=== PATIENT | female | born 1980 | race Caucasian/White ===

== ENCOUNTER 2016-12-12 12:48 | Inpatient (IN) ==
[~2016-12-12 12:48] MED LIST: Famotidine 20 MG/2 ML VIAL IVP PRN; Naloxone 0.4 MG/ML INJ IVP PRN; Ondansetron 4 MG/2 ML VIAL IVP PRN
[2016-12-12] MEDS ORDERED: miSOPROStol 25 MCG TABLET VG SCH (13:00)
[2016-12-12 13:19] LABS: Basophils % 0.1 %; Eosinophils # 0.1 K/mcL (0.0-0.6); Eosinophils % 0.8 %; Hematocrit 34.6 % (35.3-44.9); Hemoglobin 11.6 g/dL (11.5-15.4); Immature Granulocytes % 0.4 % (0-4); Lymphocytes # 1.3 K/mcL (0.6-4.6); Lymphocytes % 13.2 %; Mean Corpuscular HGB Conc 33.5 g/dL (31.6-35.5); Mean Corpuscular Hemoglobin 26.4 pg (28.0-33.3); Mean Corpuscular Volume 78.8 fL (83.0-100.0); Mean Platelet Volume 10.2 fL (9.4-12.4); Monocytes # 0.3 K/mcL (0.0-1.3); Platelet Count 192 K/mcL (140-400); Red Blood Count 4.39 M/mcL (3.82-4.97); Red Cell Distribution Width 14.7 % (11.5-14.5); Segmented Neutrophils % 82.5 %
--- NOTE | 2016-12-12 14:06 | OB/GYN History & Physical ---
Date of Encounter: 12/12/16 Time of Encounter: 13:48 Assessment and Plan (1) 19 weeks gestation of Current visit: Yes Status: Acute (2) Chronic hypertension affecting Current visit: Yes Status: Acute Continue labetalol 200mg TID. (3) Intrauterine , less than 22 weeks Current visit: Yes Status: Acute Admit for induction of labor. Absence of cardiac activity confirmed via US in office per Dr. Leary today and again on admission with doppler. Plan for cytotec 200mcg vaginally every 6 hours. BOTTLE LABELER for pain control as needed. Anticipate . (4) AMA (advanced maternal age) multigravida 35+ Current visit: Yes Status: Acute Pt declines genetic testing or autopsy at this time. Qualifiers: Trimester: second trimester Qualified Code(s): O09.522 - Supervision of elderly multigravida, second trimester (5) Obesity complicating in second trimester Current visit: Yes Status: Acute (6) BMI 36.0-36.9,adult Current visit: Yes Status: Acute History of Present Illness Chief complaint: IUFD HPI: Ms. Castro is a 36 year old female presenting at 19w3d from office where she had her anatomy US with MFM which revealed no FHR today. The absence of cardiac activity was confirmed by Dr. Leary. She denies pain or other complaints on admission today. This has been complicated by chronic hypertension that was poorly controlled prior to and early in this . She was on a beta cholo prior to but had not taken it for some time prior to initiation of PNC. This is also complicated by BMI 36 and AMA status. She declined to have any genetic screening with this . Past Med Surg Social Fam HX - Past Medical History Medical history: hypertension Psychiatric history: anxiety - Past Surgical History Surgical History: no surgical history - Social History Smoking Status: Never smoker Smokeless Tobacco Status: No Alcohol use: none Drug use: none - Family History Mother History Unknown: Yes Living Status: Still Living Obstetrical History - Pregnancies : 3 Para: 1 Term: 1 Ab's: 1 Livin - History/Complications History/Complications: child has autism Medications and Allergies Ferrous Sulfate 1 tab PO DAILY 12/12/16 [History] Labetalol [Labetalol] 200 mg PO TID 12/12/16 [History] Tablet 1 tab PO DAILY 12/12/16 [History] Allergies No Known Allergies Allergy (Verified 10/06/16 22:11) Review of System OB All systems PM: reviewed and no additional remarkable complaints except as stated Exam - Vital Signs Vital signs: Initial Vital Signs Temp Pulse Resp BP 98.7 F 108 16 139/86 12/12/16 13:05 12/12/16 13:05 12/12/16 13:05 12/12/16 13:05 - Constitutional Constitutional: well developed, well nourished, no acute distress - HEENT HEENT: Mucus Membranes Moist - Neck Neck exam: normal inspection - Lungs Respiratory exam: CTAB - Cardiovascular Cardiovascular exam: RRR, +S1, +S2 - Abdomen Abdomen: Present: non tender - Extremities Extremities exam: normal inspection Deep Tendon Reflex Grade: 2+ Normal - Vulva Vulva: bilateral: normal - Vagina Vagina: Present: normal moisture - Cervix Dilation: 0 Effacement: 0 - Anus/Rectum Anus/Rectum: Present: normal perianal skin - Comments Comments: Pt is appropriately sad at this time. She has clear speech and a logical thought process. Results Result Diagrams: 12/12/16 13:07 Abnormal lab results Hct 34.6 % (35.3-44.9) L 12/12/16 13:07 MCV 78.8 fL (83.0-100.0) L 12/12/16 13:07 MCH 26.4 pg (28.0-33.3) L 12/12/16 13:07 RDW 14.7 % (11.5-14.5) H 12/12/16 13:07 All other labs normal. - VTE Reasons for not Prescribing Prophylaxis: Treatment not Indicated - Low risk for VTE
[2016-12-12] MEDS ORDERED: miSOPROStol 100 MCG TABLET VG SCH (18:00)
[2016-12-12] MEDS ORDERED: *HR* HYDROmorphone 20 MG/20 ML PCA IVC PRN (18:39)
[2016-12-12] MEDS ORDERED: Naloxone 0.4 MG/ML INJ IVP PRN (18:39)
[2016-12-12] MEDS ORDERED: *HR* HYDROmorphone (PF) 1 MG/ML SYRINGE IVP ONE (18:40)
[2016-12-12] MEDS ORDERED: *HR* HYDROmorphone (PF) 1 MG/ML SYRINGE ONE (18:43)
[2016-12-12] MEDS ORDERED: Ringers Solution, Lactated 1,000 ML ONE (18:59)
[2016-12-12 19:14] VITALS: BP 166/90
[2016-12-13] MEDS ORDERED: miSOPROStol 100 MCG TABLET PO SCH ×2 (02:30→09:00)
--- NOTE | 2016-12-13 12:13 | OB/GYN Procedure Note ---
Delivery - Delivery Date: 12/13/16 Provider: Audrey Jones Intrapartum events: demise Delivery induction: misoprostol Delivery monitor: none Anesthesia: intravenous Estimated Blood Loss: 100 - (s) Infant A Infant Delivery Date: 12/13/16 Delivery Time: 08:59 Presentation: nuha breech Route of delivery: Gender: Male Viability: Nonviable Weight Gram: 285 g Shoulder Dystocia: not encountered Placenta: spontaneous Cord: nuchal cord - Repair Episiotomy: none Laceration Description: None - Complications Delivery complications: none - Disposition Mom disposition: stable in LDR - Comments Comments: Pt. progress with spontaneous delivery of a non-viable male fetus. Minimal bleeding. Subsequent spontaneous delivery of placenta 3 hours later. Nuchal cord X 2 present. Pt. declines autopsy or any genetic testing. Will send placenta to pathology. Aerobic and anaerobic cultures obtained from placenta. Pt. stable.
--- NOTE | 2016-12-20 11:55 | OB/GYN Progress Note ---
Date of Encounter: 12/20/16 Time of Encounter: 11:54 (Pt. was discharged home in stable condition after recovery period.)
== END 2016-12-13 14:34 | disposition home or self-care (01) | DRG 779 ==
LOC: 1NENULAB
PROVIDERS: ADMIT Obstetrics & Gynecology; ATTEND Obstetrics & Gynecology

== ENCOUNTER 2018-05-20 12:12 | Inpatient (IN) ==
[2018-05-20] MEDS ORDERED: *HR* Labetalol 20 MG/4 ML SYRINGE IVP ONE ×4 (13:34→14:48)
[2018-05-20] MEDS ORDERED: Acetaminophen 325 MG TABLET PO ONE (13:36)
[2018-05-20 13:47] LABS: Basophils % 0.3 %; Eosinophils # 0.1 K/mcL (0.0-0.6); Eosinophils % 1.7 %; Hematocrit 34.8 % (35.3-44.9); Hemoglobin 11.4 g/dL (11.5-15.4); Immature Granulocytes % 0.3 % (0-4); Lymphocytes # 1.1 K/mcL (0.6-4.6); Lymphocytes % 14.2 %; Mean Corpuscular HGB Conc 32.8 g/dL (31.6-35.5); Mean Corpuscular Hemoglobin 24.9 pg (28.0-33.3); Mean Platelet Volume 11.3 fL (9.4-12.4); Monocytes # 0.6 K/mcL (0.0-1.3); Monocytes % 7.7 %; Neutrophils # 5.9 K/mcL (1.6-8.9); Platelet Count 184 K/mcL (140-400); Red Blood Count 4.58 M/mcL (3.82-4.97); Red Cell Distribution Width 14.6 % (11.5-14.5); Segmented Neutrophils % 75.8 %
[2018-05-20] MEDS ORDERED: Naloxone 0.4 MG/ML INJ IVP PRN (13:55)
[2018-05-20] MEDS ORDERED: Famotidine 20 MG/2 ML VIAL IVP PRN (13:55)
[2018-05-20 13:56] LABS: Amphetamine Screen,Urine Negative ng/mL (Cutoff=1000); Barbiturate Screen,Urine Negative ng/mL (Cutoff=200); Benzodiazepines Screen,Urine Negative ng/mL (Cutoff=200); Cannabinoid Screen,Urine Negative ng/mL (Cutoff = 50); Cocaine Screen,Urine Negative ng/mL (Cutoff= 300); Opiate Screen,Urine Negative ng/mL (Cutoff=300); Phencyclidine Screen,Urine Negative ng/mL (Cutoff=25)
[2018-05-20 13:59] LABS: Alanine Aminotransferase 11 Units/L (7-52); Aspartate Amino Transferase 14 Units/L (13-39); BUN/Creatinine Ratio 16 (6-26); Blood Urea Nitrogen 10 mg/dL (6-20); Lactate Dehydrogenase 147 Units/L (140-271); Uric Acid 5.7 mg/dL (2.3-7.6); eGFR For Non-African Americans > 60 (> 60)
[2018-05-20 14:01] LABS: Protein/Creatinine Ratio,Urine 0.21 mg/mg (0.00-0.20)
[2018-05-20] MEDS ORDERED: Ondansetron 4 MG/2 ML VIAL IVP PRN (14:01)
[2018-05-20] MEDS ORDERED: Metoclopramide 10 MG/2 ML VIAL IVP PRN (14:01)
[2018-05-20] MEDS ORDERED: *HR* Nalbuphine 10 MG/ML AMPUL IVP PRN (14:01)
--- NOTE | 2018-05-20 16:27 | OB/GYN History & Physical ---
Date of Encounter: 05/20/18 Time of Encounter: 16:08 Assessment and Plan (1) Chronic hypertension affecting Current visit: Yes Status: Acute Admit to Labor and Delivery for induction of labor due to uncontrolled chronic hypertension Plan of care discussed with Dr. Fleming Given Labetalol 20mg IV Push x 1; 40mg IV push x 1 PIH labs negative Cervical Medina Catheter Pitocin per policy Epidural or Nubain as desired Anticipate Vaginal Delivery (2) 37 weeks gestation of Current visit: Yes Status: Acute (3) Diet controlled gestational diabetes mellitus Current visit: Yes Status: Acute Qualifiers: Trimester: third trimester Qualified Code(s): O24.410 - Gestational diabetes mellitus in , diet controlled (4) AMA (advanced maternal age) multigravida 35+ Current visit: Yes Status: Chronic Qualifiers: Trimester: third trimester Qualified Code(s): O09.523 - Supervision of elderly multigravida, third trimester (5) Obesity complicating in third trimester Current visit: Yes Status: Chronic History of Present Illness Chief complaint: High Blood Pressure HPI: Ms. Castro is a 37 year old female at 37 weeks 3 days who presents from the office due to elevated blood pressures. Pressures in the office and upon arrival to L&D were in the 160s-170s/90s-100s. Additionally, pt complained of slight headache, blurred vision, and mild lightheadedness. Denies chest pain, SOB, nausea, vomiting. Endorses good movement, and denies vaginal bleeding/ loss of clear fluid. has been complicated by chronic hypertension, thus far managed with Labetalol throughout . Pt recently visited with Dr. Shepherd 4 days ago and noted to feel sluggish, fatigued with lower BPs than she was used to, and Labetalol dosage was lowered. Additional complications include advanced maternal age, diet-controlled gestational diabetes, obesity. History of IUFD at 20 weeks gestational age in December 2016. care with Dr[address] Shepherd thus far through . Labs: Blood Type: A positive GBS: Negative Hep B Surf Ag: Nonreactive HIV Ab: Nonreactive Treponema Ab: Negative Rubella: Immune Varicella: Immune Past Med Surg Social Fam HX - Past Medical History Attestation: Yes The following information was validated with the patient. Source: patient Medical history: hypertension Psychiatric history: anxiety, depression - Past Surgical History Surgical History: no surgical history - Social History Smoking Status: Never smoker Smokeless Tobacco Status: No Alcohol use: none Drug use: none - Family History Mother Living Status: Still Living Hx Family Cardiac Disorders: No Hx Family Respiratory Disorders: No Hx Family Cancer: No Hx Family GI Disorders: No Hx Family Genitourinary Disorders: No Hx Family Endocrine Disorder: No Hx Family Musculoskeletal Disorders: No Hx Family Neuromuscular Disorders: No Hx Family Neurologic Disorders: No Hx Family HEENT Disorders: No Hx Family Autoimmune Disorders: No Hx Family Reproductive Disorders: No Hx Family Psychosocial Disorders: No Hx Family Medical Disorders: No Obstetrical History - Pregnancies : 4 Para: 2 Term: 1 : 1 Ab's: 1 Livin Medications and Allergies Labetalol [Labetalol] 300 mg PO BID 12/12/16 [History] Ibuprofen 04/09/17 [History] Pantoprazole Sodium [Protonix] 40 mg PO DAILY #30 tablet. 04/09/17 [Rx] 3 Allergy/AdvReac Type Severity Reaction Status Date / Time [place] Allergy Swelling Verified 04/09/17 12:26 of Lip/Tongue/Throat Review of System OB All systems PM: reviewed and no additional remarkable complaints except as stated Exam - Vital Signs Vital signs: Elevated Pressures 160s-170s/90s-100s. Otherwise vital signs reviewed and stable. - Constitutional Constitutional: well developed, well nourished, no acute distress, obese - HEENT HEENT: EOMI, Normocephaly - Neck Neck exam: full ROM - Lungs Respiratory exam: CTAB - Cardiovascular Cardiovascular exam: RRR, +S1, +S2 - Breasts Breast: bilateral: normal - Abdomen Abdomen: Present: bowel sounds normal, gravid, non tender - Extremities Extremities exam: full ROM, normal capillary refill, normal inspection, pedal edema, warm, radial pulses palpable and symmetrical Deep Tendon Reflex Grade: 2+ Normal - Cervix Dilation: 2 (Per CNM) Effacement: 80 Station: -2 Results Result Diagrams: 05/20/18 13:00 05/20/18 13:00 Abnormal lab results Hgb 11.4 g/dL (11.5-15.4) L 05/20/18 13:00 Hct 34.8 % (35.3-44.9) L 05/20/18 13:00 MCV 76.0 fL (83.0-100.0) L 05/20/18 13:00 MCH 24.9 pg (28.0-33.3) L 05/20/18 13:00 RDW 14.6 % (11.5-14.5) H 05/20/18 13:00 Protein/Creatinin Ratio 0.21 mg/mg (0.00-0.20) H 05/20/18 13:00 Urine Total Protein 46 mg/dL (1-14) H 05/20/18 13:00 All other labs normal. - VTE Reasons for not Prescribing Prophylaxis: Treatment not Indicated - Low risk for VTE - Attending Attestation I examined this patient and my medical decision-making was reviewed with the Resident Physician. I agree with the documented findings, disposition and treatment plan as described except to the extent set forth below. Igor Fleming
[2018-05-20] MEDS ORDERED: Oxytocin 20 units/ LR 1000 mL 20 UNIT/1,000 ML BAG IVC SCH (17:30)
[2018-05-20] MEDS: Ringers Solution, Lactated 1,000 ML IVC SCH (17:51)
--- NOTE | 2018-05-20 18:26 | Anesthesia Evaluation PreOp ---
Date of Encounter: 05/20/18 Time of Encounter: 18:24 - Past History Planned Operation: GUSTABO Cardiac History: HTN (on Labetalol IV) Pulmonary History: Denies Any Significant HX [employer] History: Denies Any Significant HX Other Medical History: Diabetes Type II (Gestational) Anesthesia History: No Prior Anesthetic Complications : Yes Alcohol Use: none Drug use: none Medications and Allergies Labetalol [Labetalol] 300 mg PO BID 12/12/16 [History] Ibuprofen 04/09/17 [History] Pantoprazole Sodium [Protonix] 40 mg PO DAILY #30 tablet. 04/09/17 [Rx] 3 Allergy/AdvReac Type Severity Reaction Status Date / Time [place] Allergy Swelling Verified 04/09/17 12:26 of Lip/Tongue/Throat - Meds/Allergy Pre-op Review Medications Reviewed: Yes Allergies Reviewed: Yes Beta Blockers on Current Med List: Yes If Beta Blockers taken, Date/Time (Last Dose taken): 05/20 135 Anesthesia Results - Labs 05/20/18 13:00 05/20/18 13:00 Anesthesia Exam O2 Sat Height 1.75 m Height 1.75 m Weight 112.8 kg Weight 112.8 kg NPO (# of Hours): 4 Pain Scale: 3 Pain Scale Used: Numeric (1 - 10) - HEENT Pupil (Motor): Pupils equal Mallampati: II Teeth: Normal Oral Opening: Greater than 3 - [employer] LOC: Oriented [employer] Motor: Normal RUE, Normal LUE, Normal RLE, Normal LLE, Normal Face [employer] Sensory: Normal: RUE, LUE, RLE, LLE, Face - Cardiac Rhythm: Regular Murmur: None JVD: No Carotid Bruit: No - Pulmonary Breath Sounds: bilateral Clear Respiratory Effort: Symmetrical Anesthesia Assess/Plan ASA Score: 3 (PIH, Gestational DM, Obesity) Modified [place] Scale for Level of Consciousness: Cooperative, oriented, and tranquil Anesthetic Plan: General (plan b), Regional (plan a) Autologous Blood: Yes Monitoring Plan: Standard Monitors Recovery Plan: PACU
[2018-05-20] MEDS ORDERED: Ringers Solution, Lactated 500 ML IVC ONE (18:37)
[2018-05-20] MEDS ORDERED: EPHEDrine 50 MG/ML VIAL IVP PRN (18:37)
[2018-05-20] MEDS ORDERED: Epidural Premix (fent/bupiv) 110 ML EP SCH (18:45)
--- NOTE | 2018-05-20 20:01 | OB Labor Progress Note ---
Date of Encounter: 05/20/18 Time of Encounter: 19:57 Labor Progress Note - Subjective Subjective: Pt starting to feel some contractions - Vital Signs Vital Signs: 129/70, 145/80, 147/67 - Cervix Cervix: 3/80/-2 - Heart Tones Heart Tones: 130/moderate/+accels/-decels - [place]: q2-3 - Interventions Interventions: 1729- cervical hinson inserted - Plan Plan: Pitocin per policy Continue po labetalol bid anticipate
--- NOTE | 2018-05-21 00:14 | OB Labor Progress Note ---
Date of Encounter: 05/21/18 Time of Encounter: 00:12 Labor Progress Note - Subjective Subjective: Pt feeling contractions, has had nubain - Vital Signs Vital Signs: 0001: 171/82 2302:157/78 - Cervix Cervix: cervical hinson remains in place - Heart Tones Heart Tones: 125/moderate/+accels/-decels - [place]: 2-3 - Plan Plan: Cervical hinson remains in place Continue pitocin per policy Awaiting epidural placement Anticipate
[2018-05-21] MEDS ORDERED: Lidocaine -MPF 1% 5 ML AMPUL ONE (00:38)
--- NOTE | 2018-05-21 01:13 | Anesthesia Procedures ---
Date of Encounter: 05/21/18 Time of Encounter: 01:10 Procedures: Anesthesia - Epidural/Spinal Patient ID/Chart reviewed: Yes Patient examined: Yes OB Eval: Gestational age: 37.4 OB Eval: : 4 OB Eval: Hx Para: 1 OB Eval: Dilated at (cm): 2 OB Eval: Contractions: Non-stressed pattern Consent Obtained: Yes Supplemental Oxygen: None/Room Air Site Prep: Aseptic Technique, Sterile prep and drape, Povidone-Iodine 1% Patient position: upright Local Anesthetic: Lidocaine 1% Amount of Local Anesthetic used: 3 Touhy Needle Gauge: 18 Touhy Needle Depth (cm): 10 Catheter Depth at Skin (cm): 20 Test Dose (1.5% Lido + Epi): Volume given (mls): 5 Test Dose Result: Negative Loading Dose: Other: 10mls of epidural pharm bag premix solution Loading Dose Administered: Thru Catheter Infusion Med: 0.125% Bupivacaine w/ 2 mcg/ml Fentanyl Infusion Rate (mls/hr): 16 ([id number]) Catheter Secured in Place: Tegaderm, Tape Interspace Used: L4-L5 Loss of Resistance (JOSE): Yes Blood: No CSF: No Paresthesia: No Procedure: pt tolerated procedure well. no complications. vss. fhr stable.
[2018-05-21] MEDS ORDERED: *HR* Labetalol 20 MG/4 ML SYRINGE IVP ONE (01:37)
--- NOTE | 2018-05-21 04:25 | OB Labor Progress Note ---
Date of Encounter: 05/21/18 Time of Encounter: 04:23 Labor Progress Note - Subjective Subjective: comfortable with epidural - Vital Signs Vital Signs: BP remains elevated 165/91 - Cervix Cervix: 5/80/-2 - Heart Tones Heart Tones: 130/moderate/+accels/-decels - [place]: adjusted q3-4 - Interventions Interventions: AROM for small amount blood tinged fluid - Plan Plan: Continue pitocin per policy Frequent repositioning BPs reviewed with Dr. Fleming, will give 300mg labetalol po dose now Anticipate
[2018-05-21] MEDS: Ringers Solution, Lactated 1,000 ML IVC SCH (07:55)
--- NOTE | 2018-05-21 08:24 | OB Labor Progress Note ---
Date of Encounter: 05/21/18 Time of Encounter: 08:22 Labor Progress Note - Subjective Subjective: Patient comfortable with epidural, no headache, blurred vision or epigastric pain - Vital Signs Vital Signs: Afebrile, vital signs stable. Blood pressure 142/75. Up to 170s/90s - Cervix Cervix: 7-8 per RN - Heart Tones Heart Tones: 120s baseline, CAT 1. Variable decelerations with contractions - Elizabeth Elizabeth: Every 2-3 minutes on 16 milliunits of Pitocin - Interventions Interventions: 37 week IUP with chronic hypertension and superimposed preeclampsia - Plan Plan: Induction of labor, currently on Pitocin. Anticipate vaginal delivery
--- NOTE | 2018-05-21 10:28 | OB/GYN Procedure Note ---
Delivery - Delivery Date: 05/21/18 Provider: Vilma Shepherd Intrapartum events: none Delivery induction: oxytocin, hinson Delivery augmentation: rupture of membranes, pitocin Delivery monitor: external FHT, external uterine Anesthesia: epidural Quantitated Blood Loss: 100 - (s) A Infant Delivery Date: 05/21/18 Infant Delivery Time: 10:03 Presentation: vertex Position: OA Route of delivery: Gender: Male Viability: Viable Pounds: 7 Ounces: 7 Weight Gram: 3.38 kg at 1 minute: 8 at 5 mins: 9 Shoulder Dystocia: not encountered Placenta: spontaneous Cord: 3 umbilical vessels - Repair Episiotomy: none Laceration Description: Perineal - 2nd Degree - Complications Delivery complications: none Delivery comments: The patient was complete and pushing with epidural anesthesia with a spontaneous vaginal delivery in the OA position of a vigorous male infant weighing 7 lbs. 7oz. with Apgars of 8 at 1 minute and 9 at 5 minutes. Infant was placed on the maternal abdomen. The cord was clamped and cut after pulsations ceased. The placenta was delivered spontaneous and intact. Three- vessel cord confirmed. Second-degree perineal laceration was repaired with 3-0 Monocryl in the usual fashion. No other lacerations noted. Both mother and infant are recovering in stable condition in the LDR. Estimated blood loss 100 mL, complications none - Disposition Mom disposition: stable in LDR [place] disposition: stable in LDR
[2018-05-21] MEDS ORDERED: Oxytocin 20 units/ LR 1000 mL 20 UNIT/1,000 ML BAG IVC SCH (11:50)
[2018-05-21] MEDS: Ibuprofen 600 MG TABLET PO SCH ×2 (12:12→19:39)
--- NOTE | 2018-05-21 12:15 | Event Note ---
Date of Encounter: 05/21/18 Time of Encounter: 12:14 Per RN, pt's BP is 192/103. She has had consistently severe range pressures since delivery. POC discussed with Dr. Shepherd. Will give 4 gram bolus magnesium sulfate followed by 2 grams per hour for 24 hours. RN administering labetalol now as directed by Dr. Shepherd.
[2018-05-21] MEDS ORDERED: Calcium Gluconate 1,000 MG/10 ML VIAL IVPB ONE (13:40)
[2018-05-21] MEDS: Acetaminophen 325 MG TABLET PO PRN (13:58)
[2018-05-21] MEDS: Magnesium Sulfate 20 gm/500mL 20 GM/500 ML IV.SOLN IVC SCH ×2 (14:24→22:33)
[2018-05-22] MEDS: Ibuprofen 600 MG TABLET PO SCH ×2 (01:27→18:51)
[2018-05-22] MEDS: Acetaminophen 325 MG TABLET PO PRN ×2 (07:45→21:51)
[2018-05-22] MEDS: Prenatal Vit/FA 1 EACH TABLET PO SCH (08:51)
--- NOTE | 2018-05-22 09:45 | OB/GYN Progress Note ---
Date of Encounter: 05/22/18 Time of Encounter: 09:56 - Assessment and Plan (1) (normal spontaneous vaginal delivery) Current Visit: Yes Status: Acute Continue routine care Meeting all milestones Continue monitoring BPs (2) Chronic hypertension affecting Current Visit: Yes Status: Acute Pt continues to have borderline elevated BPs Continue Labetalol 300 TID Continue Mg Monitor BPs PIH Labs pending Subjective - Subjective Principal diagnosis: ; Elevated BP Interval history: Pt seen and examined at bedside States some mild anxiety about elevated BPs. Denies headache, blurry vision, dizziness, lightheadedness, fatigue, chest pain, SOB, nausea/vomiting. Mother and baby resting comfortably Pain well controlled Ambulating without difficulty Tolerating Regular Diet Passing flatus, yet to pass BM Medina Catheter in place Formula feeding infant Plan to discuss contraception with partner Patient reports: appetite normal, voiding normally, pain well controlled, ambulating normally : doing well Objective - Latest Vital Signs Latest vital signs: Vital Signs Temp Pulse Pulse Resp BP Pulse Ox 05/22/18 09:20 86 18 162/100 05/22/18 08:40 82 18 05/22/18 08:20 82 18 151/99 05/22/18 07:15 78 18 145/93 05/22/18 06:25 83 14 138/85 05/22/18 05:15 83 16 134/82 05/22/18 04:20 98.0 F 79 16 130/83 98 05/22/18 03:15 78 16 119/75 05/22/18 02:25 76 14 121/78 05/22/18 01:20 83 14 148/88 05/22/18 00:20 82 16 134/81 05/21/18 23:15 84 16 143/88 05/21/18 22:20 97.6 F 79 16 127/76 96 05/21/18 22:15 79 16 127/76 05/21/18 21:29 97.7 F 84 18 124/78 95 05/21/18 21:15 84 18 124/78 05/21/18 20:15 81 14 116/56 05/21/18 19:15 97.6 F 81 14 116/56 96 05/21/18 18:33 83 14 125/77 05/21/18 17:15 87 16 131/83 09/12/18 16:15 82 14 148/87 05/21/18 15:15 98.5 F 85 16 144/88 95 05/21/18 14:20 91 16 131/83 05/21/18 14:15 98.7 F 05/21/18 13:47 98.4 F 94 16 157/96 97 05/21/18 13:45 94 16 157/96 05/21/18 13:06 98.0 F 93 16 166/99 Intake and Output 05/21/18 05/22/18 05/22/18 23:59 07:59 15:59 Intake Total 500 / 500 Output Total 1300 / 1300 2140 / 2140 250 / 250 Balance -800 / -800 -2140 / -2140 -250 / -250 Intake: IV Fluids 500 / 500 Magnesium Sulfate Premix 20 gm/ 500 / 500 500mL 20 gm In 500 ml @ 2 GM/HR 50 mls/hr IVC .Q10H TIFFANIE Rx#: [id number] Output: Urine 980 / 980 2140 / 2140 250 / 250 Catheter 320 / 320 - Exam Lungs: bilateral: normal Chest: Normal S1, Normal S2 Extremities: Present: normal, edema Abdomen: Present: normal appearance, soft Uterus: Present: normal, firm
[2018-05-22] MEDS ORDERED: Ringers Solution, Lactated 1,000 ML ONE (10:15)
[2018-05-22] MEDS: Magnesium Sulfate 20 gm/500mL 20 GM/500 ML IV.SOLN IVC SCH (10:17)
[2018-05-22] MEDS: Ringers Solution, Lactated 1,000 ML IVC SCH (10:18)
[2018-05-22 13:40] LABS: Basophils % 0.2 %; Eosinophils # 0.1 K/mcL (0.0-0.6); Eosinophils % 1.4 %; Hematocrit 31.7 % (35.3-44.9); Hemoglobin 10.1 g/dL (11.5-15.4); Immature Granulocytes % 0.3 % (0-4); Lymphocytes % 10.2 %; Mean Corpuscular HGB Conc 31.9 g/dL (31.6-35.5); Mean Corpuscular Hemoglobin 24.5 pg (28.0-33.3); Mean Corpuscular Volume 76.8 fL (83.0-100.0); Mean Platelet Volume 10.9 fL (9.4-12.4); Monocytes # 0.5 K/mcL (0.0-1.3); Neutrophils # 8.1 K/mcL (1.6-8.9); Platelet Count 166 K/mcL (140-400); Red Blood Count 4.13 M/mcL (3.82-4.97); Segmented Neutrophils % 82.9 %
[2018-05-22 14:04] LABS: Alanine Aminotransferase 8 Units/L (7-52); Aspartate Amino Transferase 14 Units/L (13-39); BUN/Creatinine Ratio 15 (6-26); Blood Urea Nitrogen 11 mg/dL (6-20); Lactate Dehydrogenase 244 Units/L (140-271); Uric Acid 6.4 mg/dL (2.3-7.6); eGFR For Non-African Americans > 60 (> 60)
[2018-05-23 04:40] LABS: Basophils % 0.4 %; Eosinophils # 0.2 K/mcL (0.0-0.6); Eosinophils % 2.3 %; Hematocrit 28.3 % (35.3-44.9); Immature Granulocytes % 0.4 % (0-4); Lymphocytes # 1.4 K/mcL (0.6-4.6); Lymphocytes % 17.1 %; Mean Corpuscular HGB Conc 31.8 g/dL (31.6-35.5); Mean Corpuscular Hemoglobin 24.1 pg (28.0-33.3); Mean Corpuscular Volume 75.9 fL (83.0-100.0); Mean Platelet Volume 10.9 fL (9.4-12.4); Monocytes # 0.5 K/mcL (0.0-1.3); Monocytes % 6.2 %; Neutrophils # 6.1 K/mcL (1.6-8.9); Platelet Count 181 K/mcL (140-400); Red Blood Count 3.73 M/mcL (3.82-4.97); Red Cell Distribution Width 15.3 % (11.5-14.5); Segmented Neutrophils % 73.6 %
[2018-05-23 05:01] LABS: Alanine Aminotransferase 9 Units/L (7-52); Aspartate Amino Transferase 12 Units/L (13-39); BUN/Creatinine Ratio 18 (6-26); Blood Urea Nitrogen 16 mg/dL (6-20); Lactate Dehydrogenase 197 Units/L (140-271); Uric Acid 7.1 mg/dL (2.3-7.6); eGFR For Non-African Americans > 60 (> 60)
[2018-05-23] MEDS: Prenatal Vit/FA 1 EACH TABLET PO SCH (08:31)
[2018-05-23] MEDS: Ibuprofen 600 MG TABLET PO SCH (08:32)
[2018-05-23 08:51] VITALS: BP 144/86
--- NOTE | 2018-05-23 09:03 | Discharge Summary ---
Date of Encounter: 05/23/18 Time of Encounter: 08:57 - Discharge Diagnosis (1) Vaginal delivery Priority: Primary Status: Acute Comments: S/P Vaginal Delivery Day 2 Pain is well controlled Lochia is light and without clots VSS Tolerating regular diet, passing flatus Voiding without difficulty Discharge home today (2) Chronic hypertension affecting Priority: Primary Status: Acute - Discharge Medications Prescriptions: Acetaminophen [Tylenol] 650 mg PO Q6HR #30 tablet Docusate [Colace] 100 mg PO BID #30 capsule Ferrous Sulfate 325 mg PO DAILY #90 tablet Labetalol [Trandate] 300 mg PO TID 30 Days #270 tablet Home Medications: Acetaminophen [Tylenol] 650 mg PO Q6HR #30 tablet 05/23/18 [Rx] Docusate [Colace] 100 mg PO BID #30 capsule 05/23/18 [Rx] Ferrous Sulfate 325 mg PO DAILY #90 tablet 05/23/18 [Rx] Labetalol [Trandate] 300 mg PO TID 30 Days #270 tablet 05/23/18 [Rx] Omeprazole [PriLOSEC] 40 mg PO DAILY@2130 capsule. 05/23/18 [Rx] Vit/FA 1 each PO DAILY tablet 05/23/18 [Rx] Allergies/Adverse Reactions: 3 Allergy/AdvReac Type Severity Reaction Status Date / Time [place] Allergy Swelling Verified 04/09/17 12:26 of Lip/Tongue/Throat Data Procedures and tests throughout hospitalization: Laboratory Tests 05/20/18 05/20/18 05/20/18 13:00 13:00 13:00 WBC 7.8 RBC 4.58 Hgb 11.4 L Hct 34.8 L MCV 76.0 L MCH 24.9 L MCHC 32.8 RDW 14.6 H Plt Count 184 MPV 11.3 Immature Gran % 0.3 Seg Neutrophils % 75.8 Lymphocytes % 14.2 Monocytes % 7.7 Eosinophils % 1.7 Basophils % 0.3 Neutrophils # 5.9 Lymphocytes # 1.1 Monocytes # 0.6 Eosinophils # 0.1 Basophils # 0.0 BUN Creatinine Est GFR ( Amer) Est GFR (Non-Af Amer) BUN/Creatinine Ratio Uric Acid AST ALT Lactate Dehydrogenase Urine Creatinine 218 Protein/Creatinin Ratio 0.21 H Urine Total Protein 46 H Urine Opiates Screen Negative Ur Barbiturates Screen Negative Ur Phencyclidine Scrn Negative Ur Amphetamines Screen Negative U Benzodiazepines Scrn Negative Urine Cocaine Screen Negative U Marijuana (THC) Screen Negative Ur Drug Screen Interp See Below Specimen Rejected Blood Type 05/20/18 05/20/18 05/22/18 13:00 20:30 12:32 WBC RBC Hgb Hct MCV MCH MCHC RDW Plt Count MPV Immature Gran % Seg Neutrophils % Lymphocytes % Monocytes % Eosinophils % Basophils % Neutrophils # Lymphocytes # Monocytes # Eosinophils # Basophils # BUN 10 Creatinine 0.61 Est GFR ( Amer) > 60 Est GFR (Non-Af Amer) > 60 BUN/Creatinine Ratio 16 Uric Acid 5.7 AST 14 ALT 11 Lactate Dehydrogenase 147 Urine Creatinine Protein/Creatinin Ratio Urine Total Protein Urine Opiates Screen Ur Barbiturates Screen Ur Phencyclidine Scrn Ur Amphetamines Screen U Benzodiazepines Scrn Urine Cocaine Screen U Marijuana (THC) Screen Ur Drug Screen Interp Specimen Rejected Miscellaneous Blood Type A POSITIVE 05/22/18 05/22/18 05/23/18 13:02 13:02 04:07 WBC 9.8 8.2 RBC 4.13 3.73 L Hgb 10.1 L 9.0 L Hct 31.7 L 28.3 L MCV 76.8 L 75.9 L MCH 24.5 L 24.1 L MCHC 31.9 31.8 RDW 15.0 H 15.3 H Plt Count 166 181 MPV 10.9 10.9 Immature Gran % 0.3 0.4 Seg Neutrophils % 82.9 73.6 Lymphocytes % 10.2 17.1 Monocytes % 5.0 6.2 Eosinophils % 1.4 2.3 Basophils % 0.2 0.4 Neutrophils # 8.1 6.1 Lymphocytes # 1.0 1.4 Monocytes # 0.5 0.5 Eosinophils # 0.1 0.2 Basophils # 0.0 0.0 BUN 11 Creatinine 0.75 Est GFR ( Amer) > 60 Est GFR (Non-Af Amer) > 60 BUN/Creatinine Ratio 15 Uric Acid 6.4 AST 14 ALT 8 Lactate Dehydrogenase 244 Urine Creatinine Protein/Creatinin Ratio Urine Total Protein Urine Opiates Screen Ur Barbiturates Screen Ur Phencyclidine Scrn Ur Amphetamines Screen U Benzodiazepines Scrn Urine Cocaine Screen U Marijuana (THC) Screen Ur Drug Screen Interp Specimen Rejected Blood Type 05/23/18 04:07 WBC RBC Hgb Hct MCV MCH MCHC RDW Plt Count MPV Immature Gran % Seg Neutrophils % Lymphocytes % Monocytes % Eosinophils % Basophils % Neutrophils # Lymphocytes # Monocytes # Eosinophils # Basophils # BUN 16 Creatinine 0.90 Est GFR ( Amer) > 60 Est GFR (Non-Af Amer) > 60 BUN/Creatinine Ratio 18 Uric Acid 7.1 AST 12 L ALT 9 Lactate Dehydrogenase 197 Urine Creatinine Protein/Creatinin Ratio Urine Total Protein Urine Opiates Screen Ur Barbiturates Screen Ur Phencyclidine Scrn Ur Amphetamines Screen U Benzodiazepines Scrn Urine Cocaine Screen U Marijuana (THC) Screen Ur Drug Screen Interp Specimen Rejected Blood Type Labs on day of discharge: Labs from last 24 hours 05/23/18 05/23/18 05/22/18 04:07 04:07 13:02 WBC 8.2 RBC 3.73 L Hgb 9.0 L Hct 28.3 L MCV 75.9 L MCH 24.1 L MCHC 31.8 RDW 15.3 H Plt Count 181 MPV 10.9 Immature Gran % 0.4 Seg Neutrophils % 73.6 Lymphocytes % 17.1 Monocytes % 6.2 Eosinophils % 2.3 Basophils % 0.4 Neutrophils # 6.1 Lymphocytes # 1.4 Monocytes # 0.5 Eosinophils # 0.2 Basophils # 0.0 BUN 16 11 Creatinine 0.90 0.75 Est GFR ( Amer) > 60 > 60 Est GFR (Non-Af Amer) > 60 > 60 BUN/Creatinine Ratio 18 15 Uric Acid 7.1 6.4 AST 12 L 14 ALT 9 8 Lactate Dehydrogenase 197 244 Specimen Rejected 05/22/18 05/22/18 13:02 12:32 WBC 9.8 RBC 4.13 Hgb 10.1 L Hct 31.7 L MCV 76.8 L MCH 24.5 L MCHC 31.9 RDW 15.0 H Plt Count 166 MPV 10.9 Immature Gran % 0.3 Seg Neutrophils % 82.9 Lymphocytes % 10.2 Monocytes % 5.0 Eosinophils % 1.4 Basophils % 0.2 Neutrophils # 8.1 Lymphocytes # 1.0 Monocytes # 0.5 Eosinophils # 0.1 Basophils # 0.0 BUN Creatinine Est GFR ( Amer) Est GFR (Non-Af Amer) BUN/Creatinine Ratio Uric Acid AST ALT Lactate Dehydrogenase Specimen Rejected Miscellaneous Date of admission: 05/20/18 12:12 Primary care physician: Igor Kwon DO Consults: 05/21/18 11:50 Consult to Practice Management Consultant [CONS] Routine Comment: Vaginal delivery, consult needed Discharging clinician: Analilia Fuchs Anticipated date of discharge: 05/23/18 - Patient Status Disposition: Home, Self-Care Condition: Good Functional capacity at discharge: independent ambulation Overall status at discharge: patient is back to baseline - Discharge Instructions Follow Up With: Daniel Kwon DO [Primary Care Provider] - Vilma Shepherd MD [Partnered Physician] - - Diet and Activity Activity: increase activity as tolerated Diet: low salt diet Hospital Course Reason for admission: IUP at term Delivery: Episiotomy: none Laceration: 2nd degree Other procedures: none complications: perineal laceration Discharge diagnosis: IUP at term delivered, other (chronic hypertension affecting ) [place] baby: male Time Attestation: Total time spent providing and/or coordinating discharge services: Time Spent: Less than 30 minutes Exam - Constitutional Vitals: Temp Pulse Resp BP Pulse Ox 98.8 F 90 14 144/86 98 05/23/18 08:50 05/23/18 08:50 05/23/18 08:50 05/23/18 08:50 05/23/18 08:50 General appearance IM: A&O X 3, pleasant, no acute distress - Respiratory Respiratory exam: Present: CTAB. Absent: accessory muscle use - Cardiovascular Cardiovascular exam IM: Present: RRR, +S1, +S2 - GI/Abdominal GI/Abdominal exam IM: soft, no peritoneal signs - Rectal Rectal exam: deferred - Uterine Tone: Firm Uterus Position: At Umbilicus, Midline - Extremities Exam Extremities exam IM: Present: pedal edema (1+) - Neurological Exam Neurological exam: alert, CN II-XII intact, oriented X3, reflexes normal - Attending Attestation I examined this patient and my medical decision-making was reviewed with the Resident Physician. I agree with the documented findings, disposition and treatment plan as described except to the extent set forth below. Maximus Fuchs CNM
== END 2018-05-23 11:30 | disposition home or self-care (01) | DRG 560 ==
LOC: 1NENULAB → OBSVTOIN 12:12 → 1NENULAB 15:04 → 1NENUPED 05-21 12:52 → 1NENUOBS 05-21 13:00
PROVIDERS: ADMIT Obstetrics & Gynecology; ATTEND Obstetrics & Gynecology